=== PATIENT | female | born 1980 | race Two or more races ===

== ENCOUNTER 2024-12-06 22:03 | Emergency (ER) | payer OTHER ==
[~2024-12-06] VITALS: Ht 162.6 cm; Wt 78.0 kg
== END 2024-12-06 23:34 | disposition home or self-care (01) ==
LOC: ER 22:03
DX: Z34.90 Encounter for supervision of normal pregnancy, unspecified, unspecified trimester (principal); Z3A.32 32 weeks gestation of pregnancy; F41.0 Panic disorder [episodic paroxysmal anxiety]; R06.02 Shortness of breath; Z88.6 Allergy status to analgesic agent

== ENCOUNTER 2024-12-15 21:40 | Emergency (ER) | payer OTHER ==
[~2024-12-15] VITALS: Ht 162.6 cm; Wt 78.0 kg
[2024-12-15] MEDS ORDERED: GUAIFENESIN/DEXTROMETHORPHAN 100MG/10ML BLIST.PACK PO ONE (22:15)
[2024-12-15] MEDS ORDERED: DEXAMETHASONE SODIUM PHOSPHATE 4 MG/ML VIAL IM ONE (22:15)
[2024-12-15] MEDS ORDERED: ACETAMINOPHEN 500 MG GEL..CAP PO ONE ×2 (22:15→22:19)
[2024-12-15] MEDS ORDERED: DEXAMETHASONE SODIUM PHOSPHATE 4 MG/ML VIAL ONE (22:20)
[2024-12-15] MEDS ORDERED: GUAIFEN/DEXTROMETHORPHAN/PE 10 ML BLIST.PACK PO ONE (22:20)
[2024-12-15 23:18] LABS: BASO % 0.7 % (0.1-1.2); EOS # 0.41 (0.04-0.54); EOS % 7.2 % (0.7-7.0); LYMPH # 2.57 (1.18-3.74); LYMPH % 45.4 % (19.3-53.1); MEAN PLATELET VOLUME 11.20 fl (9.4-12.4); MONO # 0.61 (0.24-0.82); MONO % 10.8 % (4.7-12.5); NEUT # 2.01 (1.56-6.13); NEUT % 35.5 % (34.0-71.1); RED CELL DISTRIBUTION WIDTH 16.2 % (11.6-14.4)
[2024-12-15 23:45] LABS: COVID-19 AG POSITIVE (NEGATIVE)
[2024-12-16 01:34] LABS: BAND MAN 1.0 %; NEUTROPHILS MAN 39.0 %
[2024-12-16 01:35] LABS: BASOPHIL MAN 1.0 %; EOSINOPHIL MAN 3.0 %; LYMPHOCYTE MAN 38.0 %; MONOCYTE MAN 12.0 %
== END 2024-12-16 00:34 | disposition home or self-care (01) ==
LOC: ER 21:40
PROVIDERS: General Practice
DX: U07.1 COVID-19 (principal); J06.9 Acute upper respiratory infection, unspecified; Z88.6 Allergy status to analgesic agent